=== PATIENT | female | born 1930 | race Caucasian/White ===

== ENCOUNTER → 2017-03-04 | Outpatient (CLI) | payer MEDICARE, OTHER ==
[2016-01-22 15:45] VITALS: BP 187/95
[~2017-03-04] MED LIST: ANTACID1 CT2 PO; ASPIRIN E.C. 8181 MG PO; Aspirin EC PO; CALCIUM500 M1 PO; HYDRO PAR25 MG PO; MAGNESIUM250 M1 PO; METOPROLOL SUCC50 M1 PO; MIRALAX PA17 GM/Dose PO; MIRAPEX ER0.75 MG; MULTIPLE VITAMI1 CAP PO; NORCO 325 MG-51 TA1 PO; NORVASC2.5 MG PO; PRINIVIL20 MG PO; REGLAN 5MG T5 MG/TAB PO; SEA OMEGA 301 SGL PO; ZESTRIL40 M1 PO; [UNRECOGNIZED DRUG - OTHER]
== END ==
LOC: LAB 09:00
DX: E11.9 Type 2 diabetes mellitus without complications (principal); R11.0 Nausea; R53.81 Other malaise; R42 Dizziness and giddiness

== ENCOUNTER 2017-03-20 13:00 | Outpatient (RCR) | payer MEDICARE, OTHER ==
[2016-01-22 15:45] VITALS: BP 187/95
== END 2017-06-04 | disposition home or self-care (01) ==
LOC: PT
DX: M79.621 Pain in right upper arm (principal)

== ENCOUNTER → 2017-04-01 | Outpatient (CLI) | payer MEDICARE, OTHER ==
[2016-01-22 15:45] VITALS: BP 187/95
== END ==
LOC: RAD 16:16
DX: M25.552 Pain in left hip (principal); M46.96 Unspecified inflammatory spondylopathy, lumbar region

== ENCOUNTER → 2017-09-01 | Outpatient (CLI) | payer MEDICARE, OTHER ==
[2016-01-22 15:45] VITALS: BP 187/95
== END ==
LOC: RAD 11:07
DX: M79.1 Myalgia (principal); M25.552 Pain in left hip

== ENCOUNTER → 2017-10-26 | Outpatient (CLI) | payer MEDICARE, OTHER ==
[2016-01-22 15:45] VITALS: BP 187/95
== END ==
LOC: RAD 13:29
PROVIDERS: Nurse Practitioner Family
DX: R13.19 Other dysphagia (principal)

== ENCOUNTER → 2017-11-04 | Outpatient (CLI) | payer MEDICARE, OTHER ==
[2016-01-22 15:45] VITALS: BP 187/95
[~2017-11-04] MED LIST changes: +FUROSEMIDE20 MG PO; +MIRALAX17 GM PO
== END ==
LOC: RAD 10-28 14:30
DX: M25.562 Pain in left knee (principal); Z96.652 Presence of left artificial knee joint; Z96.651 Presence of right artificial knee joint

== ENCOUNTER 2017-11-06 11:02 | Emergency (ER) | payer MEDICARE, OTHER ==
[~2017-11-06] VITALS: Ht 149.9 cm; Wt 54.5 kg
[~2017-11-06 11:02] MED LIST changes: -FUROSEMIDE20 MG PO; -MIRALAX17 GM PO
[2017-11-06] MEDS ORDERED: MIRALAX17 GM PO (11:21)
[2017-11-06] MEDS ORDERED: FUROSEMIDE20 MG PO (11:23)
[2017-11-06 12:15] LABS: EOS # 0.1 (0.04-0.40); EOS % 1.5 % (1.0-5.0); HEMATOCRIT 35.7 % (37.0-47.0); HEMOGLOBIN 10.8 g/dL (12.5-16.0); MEAN CELL VOLUME 92 fl (78-100); MEAN CORPUSCULAR HEMOGLOBIN 28 pg (27-31); MEAN CORPUSCULAR HGB CONC 30 g/dL (33-37); MEAN PLATELET VOLUME 9.3 fl (7.4-10.4); MONO # 0.4 (0.20-0.80); NEU # 2.5 (1.40-6.50); PLATELET COUNT 285 K/mm3 (130-400); RED BLOOD COUNT 3.89 M/mm3 (4.10-5.30); RED CELL DISTRIBUTION WIDTH 14.1 % (11.5-14.5)
[2017-11-06 12:26] LABS: BUN/CREATININE RATIO 32.6 (6.0-26.0); CALCIUM 9.1 mg/dL (8.4-10.2); POTASSIUM 4.6 mmol/L (3.6-5.0)
[2017-11-06 12:57] LABS: URINE APPEARANCE CLEAR; URINE BILIRUBIN NEGATIVE (NEGATIVE); URINE BLOOD NEGATIVE (NEGATIVE); URINE COLOR YELLOW; URINE GLUCOSE NEGATIVE (NEGATIVE); URINE KETONE NEGATIVE (NEGATIVE); URINE LEUKOCYTE ESTERASE NEGATIVE (NEGATIVE); URINE NITRATE NEGATIVE (NEGATIVE); URINE PROTEIN(semi-quant) NEGATIVE (NEGATIVE); URINE UROBILINOGEN NORMAL (NORMAL); URINE WBC 0-1 /hpf (0-3)
[2017-11-06 14:07] VITALS: BP 161/75
== END 2017-11-06 14:04 | disposition home or self-care (01) ==
LOC: ED 11:02
PROVIDERS: Nurse Practitioner
DX: B34.9 Viral infection, unspecified (principal); R42 Dizziness and giddiness; I10 Essential (primary) hypertension; Z79.82 Long term (current) use of aspirin

== ENCOUNTER → 2017-11-11 | Outpatient (CLI) | payer MEDICARE, OTHER ==
[2017-11-06 14:07] VITALS: BP 161/75
[~2017-11-11] MED LIST changes: +FUROSEMIDE20 MG PO; +MIRALAX17 GM PO
== END ==
LOC: RAD 09:59
DX: R13.19 Other dysphagia (principal)

== ENCOUNTER 2017-12-28 09:00 | Outpatient (RCR) | payer MEDICARE, OTHER | END 2018-02-21 | disposition home or self-care (01) | LOC: PT | DX: M22.2X2 Patellofemoral disorders, left knee (principal) | CPT/HCPCS: G0283-GP; G8978-GP; G8979-GP ==

== ENCOUNTER → 2018-02-05 | Outpatient (CLI) | payer MEDICARE, OTHER ==
[2018-02-05 09:19] LABS: HEMATOCRIT 35.4 % (37.0-47.0); MEAN PLATELET VOLUME 9.3 fl (7.4-10.4); RED BLOOD COUNT 3.96 M/mm3 (4.10-5.30); RED CELL DISTRIBUTION WIDTH 14.4 % (11.5-14.5); WHITE BLOOD COUNT 5.4 K/mm3 (4.8-10.8)
== END ==
LOC: LAB 08:51
PROVIDERS: Orthopaedic Surgery
DX: M25.562 Pain in left knee (principal); M25.521 Pain in right elbow

== ENCOUNTER 2018-03-04 09:23 | Emergency (ER) | payer MEDICARE, OTHER ==
[~2018-03-04] VITALS: Wt 55.2 kg
[~2018-03-04 09:23] MED LIST changes: +CHOLEST OFF450 MG PO; -SEA OMEGA 301 SGL PO
[2018-03-04] MEDS ORDERED: DICLOFENAC SOD100 GM TOP (09:35)
[2018-03-04 10:18] LABS: HEMATOCRIT 37.7 % (37.0-47.0); HEMOGLOBIN 11.7 g/dL (12.5-16.0); MEAN CELL VOLUME 89 fl (78-100); MEAN CORPUSCULAR HEMOGLOBIN 28 pg (27-31); MEAN CORPUSCULAR HGB CONC 31 g/dL (33-37); MEAN PLATELET VOLUME 8.9 fl (7.4-10.4); PLATELET COUNT 244 K/mm3 (130-400); RED BLOOD COUNT 4.23 M/mm3 (4.10-5.30); RED CELL DISTRIBUTION WIDTH 14.8 % (11.5-14.5); WHITE BLOOD COUNT 3.3 K/mm3 (4.8-10.8)
[2018-03-04 10:32] LABS: BUN/CREATININE RATIO 26.3 (6.0-26.0); CALCIUM 9.1 mg/dL (8.4-10.2); POTASSIUM 4.3 mmol/L (3.6-5.0); TOTAL BILIRUBIN 0.4 mg/dL (0.2-1.3); TOTAL PROTEIN 6.9 g/dL (6.3-8.2)
[2018-03-04 10:35] LABS: LYMPHOCYTE 28 % (20-51); MONOCYTE 12 % (3-10); NEUTROPHILS 52 % (42-75)
[2018-03-04 10:37] LABS: CKMB ISOENZYME 7.4 ng/mL (0.6-3.5)
[2018-03-04 10:41] LABS: TROPONIN-I < 0.03 ng/mL (0.00-0.06)
[2018-03-04] MEDS ORDERED: NORVASC 5MG5 MG/TAB PO (11:23)
[2018-03-04 12:01] VITALS: BP 173/92
== END 2018-03-04 11:58 | disposition home or self-care (01) ==
LOC: ED 09:23
PROVIDERS: Physician Assistant
DX: I10 Essential (primary) hypertension (principal); Z79.899 Other long term (current) drug therapy; Z79.82 Long term (current) use of aspirin

== ENCOUNTER → 2018-08-18 | Outpatient (CLI) | payer MEDICARE, OTHER ==
[~2018-08-18] MED LIST changes: +DICLOFENAC SOD100 GM TOP; +NORVASC 5MG5 MG/TAB PO
[2018-08-18 13:46] LABS: HEMATOCRIT 36.5 % (37.0-47.0); HEMOGLOBIN 11.9 g/dL (12.5-16.0); MEAN CELL VOLUME 88 fl (78-100); MEAN CORPUSCULAR HEMOGLOBIN 29 pg (27-31); MEAN CORPUSCULAR HGB CONC 33 g/dL (33-37); MEAN PLATELET VOLUME 9.2 fl (7.4-10.4); PLATELET COUNT 305 K/mm3 (130-400); RED BLOOD COUNT 4.13 M/mm3 (4.10-5.30); RED CELL DISTRIBUTION WIDTH 14.3 % (11.5-14.5); WHITE BLOOD COUNT 6.4 K/mm3 (4.8-10.8)
[2018-08-18 14:02] LABS: ALBUMIN 4.7 g/dL (3.5-5.0); CALCIUM 9.9 mg/dL (8.4-10.2); POTASSIUM 4.9 mmol/L (3.6-5.0); TOTAL BILIRUBIN 0.4 mg/dL (0.2-1.3); TOTAL PROTEIN 7.4 g/dL (6.3-8.2)
[2018-08-18 14:22] LABS: LYMPHOCYTE 10 % (20-51); NEUTROPHILS 85 % (42-75)
[2018-08-18 14:23] LABS: MONOCYTE 5 % (3-10)
[2018-08-18 14:24] LABS: URINE APPEARANCE HAZY; URINE BILIRUBIN NEGATIVE (NEGATIVE); URINE BLOOD TRACE (NEGATIVE); URINE COLOR YELLOW; URINE GLUCOSE NEGATIVE (NEGATIVE); URINE KETONE NEGATIVE (NEGATIVE); URINE LEUKOCYTE ESTERASE NEGATIVE (NEGATIVE); URINE NITRATE NEGATIVE (NEGATIVE); URINE PROTEIN(semi-quant) TRACE mg/dL (NEGATIVE); URINE UROBILINOGEN NORMAL (NORMAL); URINE WBC 0-1 /hpf (0-3)
== END ==
LOC: LAB 13:18
PROVIDERS: Family Medicine
DX: Z00.00 Encounter for general adult medical examination without abnormal findings (principal); M81.0 Age-related osteoporosis without current pathological fracture; R30.0 Dysuria; E78.5 Hyperlipidemia, unspecified

== ENCOUNTER → 2018-10-18 | Outpatient (CLI) | payer MEDICARE, OTHER | LOC: RAD 14:49 | DX: M25.562 Pain in left knee (principal); Z96.652 Presence of left artificial knee joint ==

== ENCOUNTER 2018-11-26 09:00 | Outpatient (RCR) | payer MEDICARE, OTHER ==
[2018-12-13] MEDS ORDERED: FUROSEMIDE20 MG PO (02:43)
[2018-12-13] MEDS ORDERED: LISINOPRIL20 MG PO (02:43)
[2018-12-13] MEDS ORDERED: AMLODIPINE BESYL5 MG PO (02:44)
== END 2018-11-26 09:30 | disposition home or self-care (01) ==
LOC: PT 09:00
DX: M19.90 Unspecified osteoarthritis, unspecified site (principal); M25.562 Pain in left knee
CPT/HCPCS: G8978-GP; G8979-GP

== ENCOUNTER → 2018-12-17 | Outpatient (CLI) | payer MEDICARE, OTHER ==
[2018-12-13 06:00] VITALS: BP 166/84
[~2018-12-17] MED LIST changes: +AMLODIPINE BESYL5 MG PO; +LISINOPRIL20 MG PO
== END ==
LOC: LAB 14:45
DX: L72.0 Epidermal cyst (principal)